=== PATIENT | female | born 1950 | race Caucasian/White ===

== ENCOUNTER 2023-05-07 16:45 | Outpatient (RCR) | payer MEDICARE, SELFPAY | END 2023-05-07 23:59 | disposition home or self-care (01) | LOC: RPT 16:45 | PROVIDERS: ATTENDING PHYSICIAN Obstetrics & Gynecology; FAMILY PHYSICIAN Internal Medicine | DX: N81.6 Rectocele (principal); N81.10 Cystocele, unspecified | CPT/HCPCS: 97110; 97162; 97535 ==

== ENCOUNTER 2023-06-04 14:09 | Outpatient (RCR) | payer MEDICARE, SELFPAY | END 2023-06-04 23:59 | disposition home or self-care (01) | LOC: RPT 14:09 | PROVIDERS: ATTENDING PHYSICIAN Obstetrics & Gynecology; FAMILY PHYSICIAN Internal Medicine | DX: N81.6 Rectocele (principal); N81.10 Cystocele, unspecified; Z73.6 Limitation of activities due to disability | CPT/HCPCS: 97110; 97112; 97535 ==

== ENCOUNTER 2023-07-02 12:57 | Outpatient (RCR) | payer MEDICARE, SELFPAY | END 2023-07-02 23:59 | disposition home or self-care (01) | LOC: RPT 12:57 | PROVIDERS: ATTENDING PHYSICIAN Obstetrics & Gynecology; FAMILY PHYSICIAN Internal Medicine | DX: N81.6 Rectocele (principal); N81.10 Cystocele, unspecified; M54.2 Cervicalgia; Z73.6 Limitation of activities due to disability; M54.50 Low back pain, unspecified; R20.0 Anesthesia of skin; R20.2 Paresthesia of skin | CPT/HCPCS: 97014; 97110; 97112; 97164 ==

== ENCOUNTER 2023-08-06 12:53 | Outpatient (RCR) | payer MEDICARE, SELFPAY | END 2023-08-06 23:59 | disposition home or self-care (01) | LOC: RPT 12:53 | PROVIDERS: ATTENDING PHYSICIAN Obstetrics & Gynecology; FAMILY PHYSICIAN Internal Medicine | DX: N81.6 Rectocele (principal); N81.10 Cystocele, unspecified; Z73.6 Limitation of activities due to disability; M54.2 Cervicalgia | CPT/HCPCS: 97110; 97112; 97140 ==

== ENCOUNTER 2023-08-27 12:51 | Outpatient (RCR) | payer MEDICARE, SELFPAY | END 2023-08-27 15:41 | disposition home or self-care (01) | LOC: RPT 12:51 | PROVIDERS: ATTENDING PHYSICIAN Obstetrics & Gynecology; FAMILY PHYSICIAN Internal Medicine | DX: N81.10 Cystocele, unspecified (principal); M54.2 Cervicalgia; Z73.6 Limitation of activities due to disability | CPT/HCPCS: 97110; 97112; 97140 ==

== ENCOUNTER 2024-04-26 07:40 | Outpatient (RCR) | payer MEDICARE, SELFPAY | END 2024-04-26 23:59 | disposition home or self-care (01) | LOC: RPT 07:40 | PROVIDERS: ATTENDING PHYSICIAN Obstetrics & Gynecology; FAMILY PHYSICIAN Registered Nurse | DX: N81.84 Pelvic muscle wasting (principal); M54.30 Sciatica, unspecified side; Z73.6 Limitation of activities due to disability | CPT/HCPCS: 97161; 97530 ==

== ENCOUNTER 2024-06-08 09:57 | Outpatient (RCR) | payer MEDICARE, SELFPAY | END 2024-06-08 23:59 | disposition home or self-care (01) | LOC: RPT 09:57 | PROVIDERS: ATTENDING PHYSICIAN Obstetrics & Gynecology; FAMILY PHYSICIAN Registered Nurse | DX: N81.84 Pelvic muscle wasting (principal); M54.30 Sciatica, unspecified side; Z73.6 Limitation of activities due to disability | CPT/HCPCS: 97110; 97140 ==

== ENCOUNTER 2024-07-06 10:02 | Outpatient (RCR) | payer MEDICARE, SELFPAY | END 2024-07-06 23:59 | disposition home or self-care (01) | LOC: RPT 10:02 | PROVIDERS: ATTENDING PHYSICIAN Obstetrics & Gynecology; FAMILY PHYSICIAN Registered Nurse | DX: N81.84 Pelvic muscle wasting (principal); M54.30 Sciatica, unspecified side; Z73.6 Limitation of activities due to disability; R10.30 Lower abdominal pain, unspecified | CPT/HCPCS: 97110; 97112; 97140; 97530 ==

== ENCOUNTER 2024-08-02 06:15 | Outpatient (RCR) | payer MEDICARE, SELFPAY | END 2024-08-02 23:59 | disposition home or self-care (01) | LOC: RPT 06:15 | PROVIDERS: ATTENDING PHYSICIAN Internal Medicine | DX: M54.2 Cervicalgia (principal); Z73.6 Limitation of activities due to disability; M50.222 Other cervical disc displacement at C5-C6 level; R20.0 Anesthesia of skin; M62.81 Muscle weakness (generalized) | CPT/HCPCS: 97140; 97161 ==

== ENCOUNTER 2024-08-03 09:53 | Outpatient (RCR) | payer MEDICARE, SELFPAY | END 2024-08-03 23:59 | disposition home or self-care (01) | LOC: RPT 09:53 | PROVIDERS: ATTENDING PHYSICIAN Obstetrics & Gynecology; FAMILY PHYSICIAN Registered Nurse | DX: N81.84 Pelvic muscle wasting (principal); M54.30 Sciatica, unspecified side; Z73.6 Limitation of activities due to disability; R10.30 Lower abdominal pain, unspecified; R10.2 Pelvic and perineal pain | CPT/HCPCS: 97110; 97112; 97140 ==

== ENCOUNTER 2024-08-10 10:04 | Outpatient (RCR) | payer MEDICARE, SELFPAY | END 2024-08-10 11:52 | disposition home or self-care (01) | LOC: RPT 10:04 | PROVIDERS: ATTENDING PHYSICIAN Obstetrics & Gynecology; FAMILY PHYSICIAN Registered Nurse | DX: N81.84 Pelvic muscle wasting (principal); M54.30 Sciatica, unspecified side; Z73.6 Limitation of activities due to disability; R10.2 Pelvic and perineal pain; R10.30 Lower abdominal pain, unspecified | CPT/HCPCS: 97110; 97112; 97140; 97530 ==

== ENCOUNTER 2024-08-30 13:00 | Outpatient (RCR) | payer MEDICARE, SELFPAY | END 2024-08-30 23:59 | disposition home or self-care (01) | LOC: RPT 13:00 | PROVIDERS: ATTENDING PHYSICIAN Internal Medicine | DX: M54.2 Cervicalgia (principal); Z73.6 Limitation of activities due to disability; M50.222 Other cervical disc displacement at C5-C6 level; R20.0 Anesthesia of skin; M62.81 Muscle weakness (generalized) | CPT/HCPCS: 97110; 97140 ==

== ENCOUNTER 2024-09-16 10:06 | Outpatient (RCR) | payer MEDICARE, SELFPAY | END 2024-09-23 08:30 | disposition home or self-care (01) | LOC: RPT 10:06 | PROVIDERS: ATTENDING PHYSICIAN Internal Medicine | DX: M54.2 Cervicalgia (principal); Z73.6 Limitation of activities due to disability; M50.222 Other cervical disc displacement at C5-C6 level; R20.0 Anesthesia of skin; M62.81 Muscle weakness (generalized) | CPT/HCPCS: 97110; 97140 ==